=== PATIENT | male | born 1995 | race American Indian/Alaskan Native ===

== ENCOUNTER 2016-11-27 07:25 | Emergency (ER) | payer SELFPAY ==
[2016-11-27 07:41] VITALS: BP 133/77
[2016-11-27] MEDS ORDERED: ZOFRAN ODT PO ONE (09:46)
--- NOTE | 2016-11-27 10:53 | Emergency Department Report ---
HPI - General Chief Complaint: Sore Throat Time Seen by Provider: 11/27/16 08:48 - HPI HPI: 21-year-old male presents today with tonsillitis on and off 2 years. Patient was seen at [facility] 2 days ago and was prescribed amoxicillin and prednisone. He states his drug test and monotest were negative. Patient states that now he is unable to keep anything down including his medication. Positive for nausea and vomiting. Patient states he has history of GERD and similar symptoms. Denies fever, chills, chest pain, shortness of breath, abdominal pain. ED Past Medical Hx - Past Medical History Previous Medical History?: Yes Additional medical history: Swollen tonsil - Surgical History Past Surgical History?: No - Social History Smoking Status: Never Smoker Substance Use Type: Non Opiate Pain, Prescribed - Medications Home Medications: Home Medications Medication Instructions Recorded Confirmed Last Taken Type Amoxicillin 500 mg PO TID 11/27/16 11/27/16 11/26/16 History Ondansetron [Zofran Odt] 4 mg PO Q8HR #30 tab.rapdis 11/27/16 Unknown Rx Prednisone 10 mg PO BID 11/27/16 11/27/16 Unknown History ED Review of Systems ROS: Stated complaint: SWOLLEN TONSILS/NAUSEA Other details as noted in HPI Constitutional: denies: chills, fever, malaise Eyes: denies: eye pain ENT: throat pain. denies: ear pain, congestion Respiratory: cough. denies: shortness of breath, wheezing Cardiovascular: denies: chest pain, palpitations Endocrine: no symptoms reported Gastrointestinal: nausea, vomiting. denies: abdominal pain Neurological: denies: headache, weakness Physical Exam - Physical Exam Vital Signs: Vital Signs 11/27/16 07:31 Temperature 98.7 F Pulse Rate 59 L Respiratory 18 Rate Blood Pressure 133/77 O2 Sat by Pulse 100 Oximetry Physical Exam: GENERAL: The patient is well-developed and well-nourished. Patient is in NAD. HEAD: Normocephalic. Atraumatic. EYES: PERRL. EARS: External auditory canals and tympanic membranes clear; hearing grossly intact. NOSE: Normal nasal mucosa with no nasal discharge. THROAT: Positive for erythema and tonsillomegaly. No tonsillar exudates noted. NECK: Supple, nontender, without lymphadenopathy. CHEST/LUNGS: Clear to auscultation throughout. HEART/CARDIOVASCULAR: Regular rate and rhythm. ABDOMEN: Abdomen is soft, nontender. No guarding or rebound tenderness. EXTREMITIES: Peripheral pulses intact. Capillary refill less than 2 seconds. NEURO: Alert and oriented x 3. Normal gait. ED Course Vital Signs 11/27/16 07:31 Temperature 98.7 F Pulse Rate 59 L Respiratory 18 Rate Blood Pressure 133/77 O2 Sat by Pulse 100 Oximetry ED Medical Decision Making - Lab Data Vital Signs 11/27/16 07:31 Temperature 98.7 F Pulse Rate 59 L Respiratory 18 Rate Blood Pressure 133/77 O2 Sat by Pulse 100 Oximetry - Medical Decision Making 21-year-old male presents today with nausea and vomiting. Patient was given Zofran and is able to tolerate liquids and solids post meds. Patient is in no acute distress at this time. He will be discharged home and is encouraged to follow up with a primary care provider. He will be sent home on Zofran and is encouraged to return to the emergency room for any worsening symptoms. Critical care attestation.: If time is entered above; I have spent that time in minutes in the direct care of this critically ill patient, excluding procedure time. ED Disposition Clinical Impression: Tonsillitis Nausea & vomiting Qualifiers: Vomiting type: unspecified Vomiting Intractability: non-intractable Qualified Code(s): R11.2 - Nausea with vomiting, unspecified Disposition: DISCHARGED TO HOME OR SELFCARE Is pt being admited?: No Does the pt Need Aspirin: No Condition: Stable Instructions: Acute Nausea and Vomiting (ED), Tonsillitis (ED) Additional Instructions: Follow-up with primary care provider. Return to the emergency department if symptoms worsen. Prescriptions: Ondansetron [Zofran Odt] 4 mg PO Q8HR #30 tab.rapdis Referrals: PRIMARY CARE, [Primary Care Provider] - 3-5 Days [facility] [Outside] - 3-5 Days Forms: Work/School Release Form(ED) Time of Disposition: 10:55
== END 2016-11-27 11:07 | disposition home or self-care (01) ==
LOC: ED 07:25
DX: J03.90 Acute tonsillitis, unspecified (principal); R11.2 Nausea with vomiting, unspecified
CPT/HCPCS: 99283; Q0162